=== PATIENT | male | born 1955 | race Caucasian/White ===

== ENCOUNTER 2024-01-26 14:42 | Outpatient (RCR) | payer MEDICARE, SELFPAY | END 2024-01-26 23:59 | disposition home or self-care (01) | LOC: ROT 14:42 | PROVIDERS: ATTENDING PHYSICIAN Hospitalist | DX: G35 Multiple sclerosis (principal); Z73.6 Limitation of activities due to disability | CPT/HCPCS: 97166; 97760 ==

== ENCOUNTER 2024-02-20 15:11 | Outpatient (RCR) | payer MEDICARE, SELFPAY | END 2024-02-20 23:59 | disposition home or self-care (01) | LOC: ROT 15:11 | PROVIDERS: ATTENDING PHYSICIAN Hospitalist | DX: G35 Multiple sclerosis (principal); Z73.6 Limitation of activities due to disability | CPT/HCPCS: 97010; 97110; 97140 ==

== ENCOUNTER 2024-02-28 15:21 | Outpatient (RCR) | payer MEDICARE, SELFPAY | END 2024-02-28 23:59 | disposition home or self-care (01) | LOC: ROT 15:21 | PROVIDERS: ATTENDING PHYSICIAN Hospitalist | DX: G35 Multiple sclerosis (principal); Z73.6 Limitation of activities due to disability | CPT/HCPCS: 97110; 97535 ==